=== PATIENT | male | born 1950 | race Caucasian/White ===

== ENCOUNTER → 2020-01-27 | Outpatient (CLI) | payer OTHER, BC ==
[~2020-01-27] MED LIST: ALLERGY RELIEF10 M1 PO; TURMERIC500 M2 PO; TYLENOL EXTRA500 MG PO; ZOCOR 20 MG TAB20 M1 PO
== END ==
LOC: LAB 13:47
PROVIDERS: ATTEND Orthopaedic Surgery
DX: Z01.812 Encounter for preprocedural laboratory examination (principal); Z20.828 Contact with and (suspected) exposure to other viral communicable diseases

== ENCOUNTER 2020-02-01 09:16 | Observation (INO) | payer OTHER, BC ==
[2020-01-27 13:07] LABS: HEMATOCRIT 41.8 % (42.0-52.0); HEMOGLOBIN 14.1 gm/dL (14.0-18.0); MCH 30.3 pg (26.0-34.0); MCHC 33.6 g/dL (28.0-37.0); MCV 90.1 fL (80.0-100.0); RBC 4.64 mil/uL (4.50-6.00); RDW 13.1 % (10.5-14.5); WBC 5.6 thou/uL (4.0-11.0)
[2020-01-27 13:13] LABS: URINE BILIRUBIN NEGATIVE (Negative); URINE BLOOD 2+ (Negative); URINE CLARITY CLEAR; URINE COLOR YELLOW; URINE GLUCOSE-RANDOM* NEGATIVE (Negative); URINE KETONES NEGATIVE (Negative); URINE LEUKOCYTES-REFLEX NEGATIVE (Negative); URINE NITRITE-REFLEX NEGATIVE (Negative); URINE PROTEIN (DIPSTICK) NEGATIVE (Negative); URINE UROBILINOGEN 0.2 E.U./dl (0.2-1.0)
[2020-01-27 13:19] LABS: PROTIME 10.4 Seconds (9.3-11.4)
--- NOTE | 2020-01-27 13:20 | EKG ---
[facility] [place] [address] ELECTROCARDIOGRAM REPORT Name: HORACE RAMIREZ Room #: PRE IN M.R.#: [id number] Admission: Attend Phys: Salvador Enriquez MD Discharge: Date of : 46 Report #: [id number] THIS REPORT FOR: cc: Richie Stewart David J. 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
[2020-01-27 13:24] LABS: ALBUMIN 4.2 g/dL (3.4-5.0); BACTERIA-REFLEX 1-9 Few /HPF (None Seen); CALCIUM 9.3 mg/dL (8.5-10.1); CASTS None Seen /LPF (None Seen); CREATININE 0.8 mg/dL (0.7-1.3); CRYSTALS None Seen /LPF (None Seen); POTASSIUM 4.4 mmol/L (3.5-5.1); SQUAMOUS 0-3 Few /LPF (0-3); URINE RBC 3-10 Few /HPF (0-2); URINE WBC-REFLEX 0-5 Rare /HPF (0-5)
[~2020-02-01] VITALS: Ht 177.8 cm; Wt 86.6 kg
[2020-02-01] VITALS (7 sets, daily range): BP systolic 99–127; BP diastolic 52–78
--- NOTE | ~2020-02-01 | O ---
[facility] [place] [address] OPERATIVE REPORT Name: HORACE RAMIREZ Room #: 448-P [facility] IN M.R.#: [id number] Admission: 02/01/20 Attend Phys: Salvador Enriquez MD Discharge: Date of : 46 Report #: [id number] THIS REPORT FOR: cc: Richie Stewart,Richie Melo,Salvador Chavira MD ~ CC: Richie nEriquez DATE OF SERVICE: 02/01/2020 PREOPERATIVE DIAGNOSIS: Right hip osteoarthritis. POSTOPERATIVE DIAGNOSIS: Right hip osteoarthritis. PROCEDURE: Right total hip arthroplasty. SURGEON: Salvador Enriquez MD FINISHED CIGAR MAKER: Chanell Reyes PA-C INDICATIONS FOR FINISHED CIGAR MAKER: Throughout the case, extensive retraction and manipulation of the hip including dislocation and reduction was required. This was afforded to me by my medical assistant internal medicine. ANESTHESIA: LMA. IMPLANTS: A 13 high offset Synergy press-fit stem, a size 56 R3 acetabular cup and a size 40+0 cobalt chrome head, as well as an Arthrex FiberTape for prophylactic femur fixation. ESTIMATED BLOOD LOSS: 100 mL. COMPLICATIONS: None. SPECIMENS: None. CONDITION UPON LEAVING THE OPERATING ROOM: Stable. INDICATIONS FOR PROCEDURE: The patient is a 69-year-old gentleman with severe right hip osteoarthritis. He had failed conservative measures for this and after discussion with him, he elected for a right total hip arthroplasty. DESCRIPTION OF PROCEDURE: Risks, benefits, alternatives, complications were discussed in detail with the patient including but not limited to risk of anesthesia, risk of damage to nerves, arteries, blood vessels, risk for [facility] [address] [place] [address] OPERATIVE REPORT Name: HORACE RAMIREZ Room #: 448-P ADM IN M.R.#: [id number] Admission: 02/01/20 Attend Phys: Salvador Enriquez MD Discharge: Date of : 46 Report #: [id number] infection, bleeding, risk for continued hip pain, leg length discrepancy, instability, and need for reoperation. Informed consent was obtained from the patient. The right hip was appropriately marked in the preoperative holding area. IV Ancef was given for preoperative antibiotics. He was brought to the operating room and placed in a supine position on the operating room table. LMA anesthesia was induced without complication. He was then placed in the left lateral decubitus position with the right hip uppermost. Right hip and lower extremity were prepped and draped in a normal sterile fashion. Timeout was performed properly identifying the patient and procedure, as well as the instrumentation and implants. All in the operating room were in agreement. Standard posterior approach to the hip was made with a 10 blade through the skin. Dissection was taken down to the fascia with Bovie cautery and anterior and posterior flaps were developed with Harvey elevator. Fresh 10 blade was used to make a fascial incision. This was taken proximally and distally with a curved Strauss scissor. Charnley retractor was placed. Trochanteric bursa was taken down with Bovie cautery. Piriformis tendon was identified, tagged and taken down with Bovie. Short external rotators were taken down with Bovie cautery. Capsulotomy was made and capsule ends were tagged for later repair. Hip was dislocated and there was extensive osteoarthritic change of the femoral head. Femoral neck cut was made 1 cm proximal to lesser trochanter based on preoperative templating and the femoral head was removed. Deep acetabular retractors were placed. Labrum was removed sharply. Pulvinar was removed with Bovie cautery. Acetabulum was then sequentially reamed up to a size 56, at which point, there was excellent bleeding cancellous bone. A size 55 trial cup was placed, found to have a good fit. Final size 56 R3 acetabular cup was placed and seated. One acetabular screw was placed for backup fixation and a polyethylene liner for a size 40 head was placed. Attention was then turned to the femur. An Arthrex FiberTape cerclage was placed around the proximal femur for prophylactic fixation and the femur was reamed and broached up to a size 13, at which point, the size 13 broach was stable, was trialed with a high offset neck and a 40+0 head. Hip was reduced, taken through range of motion, found to be stable, found to have equal leg lengths. Hip was dislocated. The broach was removed and final size 13 high offset Synergy press-fit stem was placed and seated. This was trialed again with a size 40+0 head. Hip was reduced, taken through range of motion, found to be stable, found to have equal leg lengths. Hip was dislocated one last time and a final size 40+0 cobalt chrome head was placed. Hip was reduced, taken through range of motion, found to be stable, found to have equal leg lengths. The hip was thoroughly irrigated with normal saline. A periarticular injection consisting of morphine, ropivacaine, epinephrine, and Toradol was placed around the hip joint capsule. A gram of vancomycin was placed deep in the joint, the capsule and piriformis were repaired with 0 FiberWire. The fascia was closed with 0 Vicryl, skin was closed with 2-0 Vicryl, 3-0 Monocryl. Dermabond and a LLOYD dressing were applied. The [address] [address] OPERATIVE REPORT Name: HORACE RAMIREZ Room #: 448-P [facility] IN M.R.#: [id number] Admission: 02/01/20 Attend Phys: Salvador Enriquez MD Discharge: Date of : 46 Report #: [id number] patient tolerated this procedure well and went to recovery room under care of anesthesia postoperatively. By: 0711 0750 Salvador Enriquez MD /nt
--- NOTE | 2020-02-01 18:42 | NUR ---
PATIENT ADMITTED FROM OR WITH RIGHT TOTAL HIP REPLACEMENT, LLOYD DRESSING IN PLACE, C/DI. ICE PACK TO RIGHT HIP AREA. LEFT WRIST IV IN PLACE, IV FLUIDS STARTED BY SANDY/RUDDY. PATIEN DENIES PAIN AT THIS TIME. NO C/O NAUSEA AT THIS TIME. PATIENT DOESN'T WANT TO EAT AT THIS TIME. ADMISSION DONE AND COMPLETED. REPORT GIVEN TO SANDY/RUDDY.
--- NOTE | 2020-02-02 03:35 | NUR ---
PT DENIED PAIN SO FAR.PT UP WITH ASSIST/GAIT BELT AND WALKER.PT WAS ABLE TO VOID 100CC USING HIS URINAL STANDING BEFORE HE BECAME LIGHT HEADED.BLADDER SCAN SHOWED 417CC,PT REF TO HAVE ANY CATHETER INSERTED TO DRAIN URINE.PT STATED THAT HE WOULD RATHER TRY THAN HAVE THE CATHETER.PT LATER VOIDED ANOTHER 100CC.PT SLEEPING ON HIS BED AT THIS TIME.CALL LIGHT WITHIN REACH.
[2020-02-02 04:05] VITALS: BP 105/54
[2020-02-02 07:12] LABS: HEMATOCRIT 32.5 % (42.0-52.0); HEMOGLOBIN 11.1 gm/dL (14.0-18.0); MCH 30.8 pg (26.0-34.0); MCV 90.4 fL (80.0-100.0); RBC 3.59 mil/uL (4.50-6.00); RDW 13.1 % (10.5-14.5); WBC 11.7 thou/uL (4.0-11.0)
[2020-02-02 08:10] VITALS: BP 99/58
--- NOTE | 2020-02-02 14:50 | NUR ---
ASSESSMENT: CM REVIEWED CHART AND SPOKE WITH PT. PT IS ALERT AND ORIENTED X4. PT REPORTS LIVING IN A HOUSE WITH HIS . PT REPORTS ABOUT 5 STEPS WITH HANDRAILS TO ENTER AND ABOUT 7 STEPS WITH HANDRAILS TO THE UPPER FLOOR. PT REPORTS THAT HE HAS A WALKER AT HOME WELL A CANE. PT STATES THEY ALSO HAVE A BEDSIDE COMMODE AND GRIPPER. PT REPORTS THAT HE DOES NOT HAVE OR OUTPATIENT ARRANGED. PT IS DOING WELL WITH THERAPY AND WILL WORK AGAIN WITH THEM IN THE AFTERNOON AND LIKELY DISCHARGE HOME. PT REPORTS NO FURTHER NEEDS FROM CM.
[2020-02-02 15:54] VITALS: BP 99/58
[2020-02-02 16:17] VITALS: BP 99/58
--- NOTE | 2020-02-02 16:47 | NUR ---
I have reviewed the documentation by DIANE CAREY from 02/02/20 to 02/02/20 and I concur with it. SYED LECHUGA
--- NOTE | 2020-02-03 17:28 | NUR ---
PATIENT DISCHARGED 02/02/20 HAD ORDER TO DC PENDING BUT DOCTOR WAS OKAY WITH DC 02/02/20. CASE MANAGEMENT GABRIELA Carlson ASKED THIS NURSE TO CHANGE ORDER.
== END 2020-02-02 16:36 | disposition short-term general hospital (02) ==
LOC: PRE 09:16 → 4S 13:18 → TBA 13:18 → PRE 13:34 → 4S 16:46
PROVIDERS: ADMIT Orthopaedic Surgery; ATTEND Orthopaedic Surgery
DX: M16.11 Unilateral primary osteoarthritis, right hip (principal); E66.3 Overweight; Z68.27 Body mass index [BMI] 27.0-27.9, adult; Z79.82 Long term (current) use of aspirin; Z79.899 Other long term (current) drug therapy
CPT/HCPCS: 10102; 50010; 50101; 50382; 50414; 53000; 53078; 53367; 54118; 56524; 56527; 56528; 56530; 57095; 57103; 58297; 58298; 62110; 62900; 70005

== ENCOUNTER 2021-04-23 08:53 | Emergency (ER) | payer OTHER, BC ==
[~2021-04-23] VITALS: Ht 177.8 cm; Wt 86.2 kg
[2021-04-23] MEDS ORDERED: ALLOPURINOL 10100 M3 PO (09:03)
[2021-04-23 10:01] LABS: CALCIUM 8.9 mg/dL (8.5-10.1); CREATININE 1.1 mg/dL (0.7-1.3); POTASSIUM 3.3 mmol/L (3.5-5.1)
[2021-04-23 10:11] LABS: ALBUMIN 2.8 g/dL (3.4-5.0); TOTAL BILIRUBIN 0.8 mg/dL (0.2-1.0); TOTAL PROTEIN 6.5 g/dL (6.4-8.2)
[2021-04-23 10:15] LABS: ABSOLUTE NEUTROPHILS 7.8 thou/uL (1.4-8.2); BASOPHILS 0.3 % (0.0-2.0); EOSINOPHILS 0.1 % (0.0-3.0); HEMATOCRIT 37.9 % (42.0-52.0); HEMOGLOBIN 12.6 gm/dL (14.0-18.0); LYMPHOCYTES 4.5 % (24.0-44.0); MCH 30.1 pg (26.0-34.0); MCHC 33.3 g/dL (28.0-37.0); MCV 90.4 fL (80.0-100.0); MONOCYTES 9.8 % (1.0-8.0); PLATELET COUNT 175 thou/uL (150-400); POLYS 85.3 % (36.0-66.0); RBC 4.19 mil/uL (4.50-6.00); RDW 13.5 % (10.5-14.5); WBC 9.1 thou/uL (4.0-11.0)
[2021-04-23] MEDS ORDERED: ZPAK PO (11:27)
[2021-04-23 11:30] VITALS: BP 109/48
--- NOTE | 2021-04-24 07:40 | EKG ---
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
== END 2021-04-23 11:30 | disposition home or self-care (01) ==
LOC: ER 08:53
PROVIDERS: Student in an Organized Health Care Education/Training Program
DX: U07.1 COVID-19 (principal); S01.91XA Laceration without foreign body of unspecified part of head, initial encounter; R42 Dizziness and giddiness; E78.5 Hyperlipidemia, unspecified; Z79.899 Other long term (current) drug therapy; W18.30XA Fall on same level, unspecified, initial encounter; Y93.89 Activity, other specified; Y92.89 Other specified places as the place of occurrence of the external cause; Y99.8 Other external cause status